=== PATIENT | male | born 1945 | race Caucasian/White ===

== ENCOUNTER 2018-12-09 10:12 | Observation (INO) | payer OTHER ==
[~2018-12-09] VITALS: Ht 182.9 cm; Wt 162.0 kg
[2018-12-09] VITALS (15 sets, daily range): BP systolic 119–146; BP diastolic 66–88
--- NOTE | 2018-12-09 09:21 | H ---
[place] [address] HISTORY AND PHYSICAL Name: BRITTANIE TABARES Room: [facility]#: [id number] Admission: Attend Phys: Tariq Canales MD, Discharge: Date of : 45 Report #: [id number] THIS REPORT FOR: //name// CC: Gabriela Canales DATE OF SERVICE: 12/09/2018 The patient to be admitted on 12/09/2018. The patient will be admitted through Outpatient Surgery for cardiac catheterization on 12/09/2018. HISTORY OF PRESENT ILLNESS: The patient is a very pleasant 73-year-old male with complex coronary artery disease, status post multiple prior percutaneous coronary interventions. There is underlying hypertension, hypercholesterolemia and obesity. He also has asymptomatic bilateral carotid stenosis. He has been compliant with cardiac regimen including benazepril 10 mg daily, clonidine 0.3 mg b.i.d., Plavix 75 mg daily, metoprolol succinate 25 mg daily, rosuvastatin 20 mg daily. ADDITIONAL MEDICATIONS: Include Ranitidine 150 mg b.i.d., tamsulosin 0.4 mg daily. PAST MEDICAL HISTORY: Remarkable for hyperlipidemia, hypertension and a remote TIA. SOCIAL HISTORY: The patient is a nonsmoker. He is . FAMILY HISTORY: Remarkable for no premature coronary events. REVIEW OF SYSTEMS: Following are positive GENERAL: He notes chronic weight excess. MUSCULOSKELETAL: There are chronic arthritic complaints. GASTROINTESTINAL: Has a history of reflux esophagitis. Remainder is unremarkable. PHYSICAL EXAMINATION: GENERAL: Reveals an overweight elderly male in no acute distress. VITAL SIGNS: Blood pressure is 115/78, pulse rate is 75, respirations are 18 per minute. NECK: Jugular venous pressure is normal. Carotids are 1-2+. CHEST: Clear. CARDIOVASCULAR: Reveals normal first and second heart sounds without [place] [address] HISTORY AND PHYSICAL Name: BRITTANIE TABARES Room: [facility]#: [id number] Admission: Attend Phys: Tariq Canales MD, Discharge: Date of : 45 Report #: [id number] ABDOMEN: Moderately obese and nontender. EXTREMITIES: Without edema with intact femoral, pedal and radial pulses. Recent nuclear stress test was remarkable for inducible anterolateral and apical ischemia after pharmacological provocation. IMPRESSION: 1. Abnormal nuclear stress test with inducible anterolateral and apical ischemia. 2. Coronary artery disease. 3. Status post prior coronary interventions, predominantly to the LAD. 4. Hyperlipoproteinemia. 5. Obesity. 6. Asymptomatic carotid stenosis. 7. Hypertension. RECOMMENDATIONS: Given the aforementioned history with known coronary artery disease and abnormal nuclear stress test with a moderately large inducible anterolateral and apical defect, I would recommend cardiac catheterization to define the magnitude of coronary artery disease and prospects for subsequent therapy. This has been discussed with the patient and family. <ELECTRONICALLY SIGNED> By: Tariq Canales MD, FACC 12/09/18 0921 1513 1531John Rush Canales MD, COCO /nt
[~2018-12-09 10:12] MED LIST: ASPIRIN EC81 M1 PO; BENAZEPRIL HCL5 MG PO; CLONIDINE HCL0.3 M3 PO; SIMVASTATIN40 MG PO; TOPROL XL25 MG PO; ZANTAC 150MG T150 M1 PO
[2018-12-09 11:35] LABS: HEMATOCRIT 46.1 % (42.0-52.0); HEMOGLOBIN 15.3 gm/dL (14.0-18.0); MCH 30.7 pg (26.0-34.0); MCHC 33.1 g/dL (28.0-37.0); MCV 92.7 fL (80.0-100.0); MPV 8.9 fl. (7.2-11.1); RBC 4.97 mil/uL (4.50-6.00); RDW-CV 13.7 % (10.5-14.5); WBC 7.3 thou/uL (4.0-11.0)
[2018-12-09 11:46] LABS: PROTIME 10.1 Seconds (9.20-11.50)
[2018-12-09 12:11] LABS: ALBUMIN 3.4 g/dL (3.4-5.0); ALKALINE PHOSPHATASE 68 U/L (46-116); ANION GAP 7 mmol/L (7-16); BUN 17 mg/dL (7-18); CALCIUM 9.1 mg/dL (8.5-10.1); CHLORIDE 104 mmol/L (98-107); CO2 30 mmol/L (21-32); CREATININE 1.1 mg/dL (0.6-1.3); GLUCOSE 96 mg/dL (70-99); POTASSIUM 4.5 mmol/L (3.5-5.1); SGOT 18 U/L (15-37); SGPT 17 U/L (30-65); SODIUM 141 mmol/L (136-145); TOTAL BILIRUBIN 0.2 mg/dL (<0.1-1.0); TOTAL PROTEIN 7.3 g/dL (6.4-8.2)
[2018-12-09 12:14] LABS: SERUM ASSESSMENT Clear
--- NOTE | 2018-12-09 16:52 | EKG ---
[place] [address] ELECTROCARDIOGRAM REPORT Name: BRITTANIE TABARES Room: [address] M.R.#: [id number] Admission: 12/09/18 Attend Phys: Tariq Canales MD, Discharge: Date of : 45 Report #: [id number] THIS REPORT FOR: //name// [facility] Test Date: 2018-12-09 Test Time: 11:18:11 Pat Name: BRITTANIE TABARES Department: Room: 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1945 Requested By: Tariq Canales Order Number: [id number] MD: Tariq Canales Measurements Intervals [place] Rate: 76 P: -2 MD: 157 QRS: -10 QRSD: 94 T: 7 QT: 389 QTc: 438 Interpretive Statements Sinus rhythm Abnormal R-wave progression, early transition Left ventricular hypertrophy Borderline T abnormalities, inferior leads No previous ECG available for comparison Electronically Signed On 12-09-2018 16:52:13 CDT by Tariq Canales [email or web address] <ELECTRONICALLY SIGNED> By: Tariq Canales MD, [facility] 12/09/18 1652 1118 1118 Tariq Canales MD, [facility] /EPI
--- NOTE | 2018-12-09 16:54 | EKG ---
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
[2018-12-09] MEDS ORDERED: FLOMAX0.4 MG PO (18:06)
--- NOTE | 2018-12-09 18:28 | NUR ---
PT ADMITTED AROUND 1750 PT IS ALERT AND ORIENTED X 4 PT DENIES PAIN OR SOA ON RA, PT IS ON BEDREST TILL 1999 PER CARDIOLOGY PT HAD CARDIAC CATH PT RIGHT GROIN SITE IS CLEAN DRY INTACT PT IS SR ON THE MONITOR, PT IS PLEASANT AND COOPERATIVE, PT IS NOT A FALL RISK PT USES URINAL APPROPRIATELY, WILL CONTINUE TO MONITOR
[2018-12-09] MEDS ORDERED: PLAVIX 75 MG TA75 M1 PO (20:46)
[2018-12-09] MEDS ORDERED: ARTHRITIS PAIN650 M3 PO (20:49)
[2018-12-09] MEDS ORDERED: CRESTOR20 MG PO (20:50)
[2018-12-09] MEDS ORDERED: TOPAMAX 25 MG T25 M1 PO (20:51)
[2018-12-10 04:00] VITALS: BP 121/64
[2018-12-10 04:59] LABS: HEMATOCRIT 44.4 % (42.0-52.0); HEMOGLOBIN 14.6 gm/dL (14.0-18.0); MCH 30.7 pg (26.0-34.0); MCV 93.1 fL (80.0-100.0); MPV 8.8 fl. (7.2-11.1); RBC 4.77 mil/uL (4.50-6.00); RDW-CV 13.5 % (10.5-14.5); WBC 9.4 thou/uL (4.0-11.0)
[2018-12-10 05:26] LABS: ALBUMIN 3.2 g/dL (3.4-5.0); POTASSIUM 5.1 mmol/L (3.5-5.1); TOTAL BILIRUBIN 0.3 mg/dL (<0.1-1.0); TROPONIN-I LEVEL 0.25 ng/mL (<0.06)
--- NOTE | 2018-12-10 05:41 | NUR ---
ASSUMED CARE OF PT AFTER REPORT AT 1930. PT A&OX4. VSS. PHYSICAL ASSESSMENT COMPLETED AND CHARTED. PT ON RA WITH 92% O2 SAT. PT TRACING SR ON TELE. POST CATH SITE TO RIGHT GROIN C/D/I. NO BLEEDING, HEMATOMA OR TENDERNESS. PT RESTED WELL ON BED. CALL LIGHT WITHIN REACH.
[2018-12-10 08:20] VITALS: BP 121/64
[2018-12-10 09:45] VITALS: BP 157/62
--- NOTE | 2018-12-10 09:58 | NUR ---
ASSUMED PT CARE AT 0700 PT IS ALERT AND ORIENTED X 4 PT DENIES PAIN OR SOA ON RA, PT IS UP WITH SBA TO CHAIR PT IS NOT A FALL RISK PT IS STEADY PT IS SR ON THE MONITOR, CATH RIGHT GROIN SITE CLEAN DRY INTACT, PT IS CLEARED FOR DISCAHRGE BY CARDIOLOGY
[2018-12-10 10:01] VITALS: BP 157/62
[2018-12-10 10:24] VITALS: BP 157/62
[2018-12-10 14:31] LABS: CHOLESTEROL 119 mg/dL (<200); HDL CHOLESTEROL 37 mg/dL (>40); LDL CHOLESTEROL 59 mg/dL (<100); TC:HDL 3.2 Ratio (Not establshd); TRIGLYCERIDE 115 mg/dL (<150); VLDL 23 mg/dL (<40)
--- NOTE | 2018-12-10 14:55 | D ---
[address] [address] DISCHARGE SUMMARY Name: BRITTANIE TABARES Elvira Room: [address] Sofia Sousa#: [id number] Admission: 12/09/18 Attend Phys: Tariq Canales MD, Discharge: 12/10/18 Date of : 45 Report #: [id number] THIS REPORT FOR: //name// CC: Gabriela Canales DATE OF SERVICE: 12/10/2018 FINAL DISCHARGE DIAGNOSES: 1. Abnormal nuclear stress test. 2. Coronary artery disease. 3. Status post percutaneous coronary intervention of the LAD. 4. Hypertension. 5. Hypercholesterolemia. 6. Exogenous obese. PROCEDURES: On 12/09/2018, left heart catheterization, left ventriculography, selective coronary arteriography and percutaneous coronary intervention to mid LAD. The patient is a very pleasant 73-year-old male with known coronary artery disease, status post multiple prior percutaneous coronary interventions. Recently, he had noted some chest tightness and nuclear stress test demonstrated anteroapical and anterolateral ischemia. In this context, I performed cardiac catheterization on 12/09/2018. That study revealed 80% mid LAD stenosis just distal to the previously deployed stent. I placed one 2.5 x 15 mm Jamal drug-eluting stent deployed to 12 atmospheres and post-dilated with a 2.5 x 8 NC Trek to 16-17 atmospheres with 0% residual narrowing and 40% narrowing at the ostium of the diagonal that emanated from that region. The patient did well post-procedurally and ambulated in the hallways without difficulty with good hemostasis at the right femoral site of catheterization. Laboratory data revealed sodium 141, potassium 5.1, BUN 14 and creatinine 1.0. Hemoglobin 14.6 and white blood cell count is 9400 with 186,000 platelets. He was discharged to home on the following medications: Acetaminophen 1300 mg b.i.d., aspirin 325 mg daily, benazepril or Lotensin 10 mg daily, clonidine 0.3 mg b.i.d., clopidogrel 75 mg daily with a 600 mg pablo-procedural dose, metoprolol succinate 25 mg daily, ranitidine 150 mg b.i.d., rosuvastatin 20 mg at bedtime, tamsulosin 0.4 mg daily and Topamax 25 mg b.i.d. He is scheduled to return to see me in the office on 12/31/2018 at [address] [place] [address] DISCHARGE SUMMARY Name: BRITTANIE TABARES Room: [address] Lars#: [id number] Admission: 12/09/18 Attend Phys: Tariq Canales MD, Discharge: 12/10/18 Date of : 45 Report #: [id number] Thus, the patient is discharged to home in stable condition on the aforementioned medications with followup as iterated above. <ELECTRONICALLY SIGNED> By: Tariq Canales MD, [facility] 12/10/18 1455 0945 1007John Rush Canales MD, [facility] /nt
--- NOTE | 2018-12-10 15:07 | EKG ---
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1945 Requested By: Tariq Canales Order Number: [id number] MD: Tariq Canales Measurements Intervals [place] Rate: 87 P: -10 AR: 152 QRS: -17 QRSD: 91 T: 12 QT: 376 QTc: 453 Interpretive Statements Sinus rhythm Borderline left axis deviation Abnormal R-wave progression, early transition Compared to ECG 12/09/2018 16:16:29 Left ventricular hypertrophy no longer present Electronically Signed On 12-10-2018 15:07:07 CDT by Tariq Canales [email or web address] <ELECTRONICALLY SIGNED> By: Tariq Canales MD, [facility] 12/10/18 1507 0256 0256 Tariq Canales MD, [facility] /EPI
--- NOTE | 2018-12-11 11:12 | CARD ---
[address] [address] CARDIAC CATH REPORT Name: BRITTANIE TABARES Room: [address] Sofia Sousa#: [id number] Admission: 12/09/18 Attend Phys: Tariq Canales MD, Discharge: 12/10/18 Date of : 45 Report #: [id number] THIS REPORT FOR: //name// APPROVED REPORT Study performed: 12/09/2018 13:40:21 Patient Details Patient Status: Out-Patient Room #: The patient is a 73 year-old male Event Personnel Tariq Canales Architecture Faculty Member, Rudolph Lopez ScrShirley brennan Brittany RN Book Jogger, Precious Moreno RTR Monitor Procedures Performed Art Access - R femoral artery* Left Heart Cath w/or w/o Coronaries LHC ESTRELLA Place w/wo Plasty Single LAD Hemostasis w/ Angioseal Indication Positive stress test Risk Factors Obesity, Hypercholesterolemia, Hypertension Previous Procedures/Diagnoses Previous PCI Admission/Lab Medications/Medications given during procedure Angiomax IV 24 ml, Angiomax Drip IV 56 ml per hr, Aspirin PO 162 mg, Plavix PO 600 mg Procedure Narrative The patient was brought electively to the Cardiac Catheterization Laboratory and was prepped and draped in a sterile manner. The right femoral was infiltrated with 2% Lidocaine subcutaneous anesthesia. A Cantrall 6 FR sheath was inserted into the right femoral artery. Coronary angiography was performed using coronary diagnostic catheters. The right coronary system was accessed and visualized with a Diagnostic 6FrJR4 catheter. The left coronary system was accessed and visualized with a Diagnostic 6Fr JL4 catheter. The left ventricle was accessed and visualized with a Diagnostic 6Fr straight pigtail catheter. Left ventricular/Aortic Valve gradient assessed via catheter pullback. [place] [address] CARDIAC CATH REPORT Name: BRITTANIE TABARES [address] [id number] Admission: 12/09/18 Attend Phys: Tariq Canales MD, Discharge: 12/10/18 Date of : 45 Report #: [id number] projection. Pre-demployment femoral angiogram was performed . Closure device was deployed with a Fr Angioseal STS 6Fr. Hemostasis was obtained with manual pressure following sheath removal without any complications. The patient tolerated the procedure well and there were no complications associated with the procedure. There was no hematoma. Intraoperative Conscious Sedation Sedation start time: 1400 Case end Time: 1525 Fentanyl 75 mcg Versed 2 mg Fluoro Time: 29.5 minutes Dose: DAP [id number] cGycm2 94.4 mGy Contrast Type and Amount: Visipaque 450 ml Coronary Angiography The patient's coronary anatomy is right dominant. Diagnostic Cath Left Main 0% narrowing LAD 75% mid LAD stenosis after widely patent proximal LAD stent Circumflex 30% mid vessel narrowing Right Coronary Large dominant vessel with 30% mid and distal narrowings Left Ventriculography The left ventricle is normal in size with normal contractility. The left ventricular ejection fraction is estimated to be 60%. Left ventricular wall motion abnormalities are not present. There is no mitral insufficiency. Hemodynamics The aortic pressure is 119/74 mmHg with a mean of 93 mmHg. The left ventricular pressure is 121/4 mmHg with a mean of mmHg. The left ventricular end diastolic pressure is 17 mmHg. There was no gradient across the aortic valve upon pullback. PCI Technique Lesion Percutaneous coronary intervention was performed on the mid left anterior descending artery segment. The lesion stenosis prior to intervention was 75% with GER 3 flow. A 6F XB LAD 3.5 Guide Catheter was used to engage the ostium. A BMW 190cm Interventional Guidewire was [place] [address] CARDIAC CATH REPORT Name: RAYSHAWNBRITTANIE Felix [address] [id number] Admission: 12/09/18 Attend Phys: Tariq Canales MD, Discharge: 12/10/18 Date of : 45 Report #: [id number] BALLOON DILATION A Balloon catheter NC Trek RX 2.5 X 12 was inserted and inflated up to 14.00atm for 12seconds. STENT DEPLOYMENT A drug-eluting stent Jamal RX Stent 2.5X15mm was inserted and inflated up to 10.00atm for 13seconds. Additional Inflation: 11.00atm for 14seconds. POST STENT DEPLOYMENT BALLOON DILATION A Balloon catheter NC Trek RX 2.5 X 8 was inserted and inflated up to 16.00atm for 21seconds. Additional Inflation: 17.00atm for 6seconds. Additional Inflation: 18.00atm for 7seconds. Final angiography reveals 0 % stenosis with GER 3 flow. BALLOON DILATION A Balloon catheter was inserted and inflated up to 18.00atm for 13seconds. Conclusion #1 significant coronary artery disease characterized by the following: A 75% mid LAD stenosis with local dye density definite difference; there was a widely patent proximal LAD stent B 30% narrowing of the midportion of the nondominant circumflex C dominant right coronary artery 30% mid and distal narrowings #2 normal left ventricular systolic function, estimate ejection fraction being 60% #3 mild elevation of left ventricular end-diastolic pressure at rest #4 successful percutaneous coronary intervention with deployment of drug-eluting stent at site of 75% mid LAD stenosis with 0% residual narrowing and GER-3 flow the distal vessel Recommendations Daily ASA with Plavix for at least one year Cardiac Risk Reduction [place] [address] CARDIAC CATH REPORT Name: ZENON TABARESMark Felix Room: [address] Sofia Sousa#: [id number] Admission: 12/09/18 Attend Phys: Tariq Canales MD, Discharge: 12/10/18 Date of : 45 Report #: [id number] Aspirin (any) Clopidogrel Diagnostic Cath Approved by: Tariq Canales MD Date/Time: 12/11/2018 11:12:04 <ELECTRONICALLY SIGNED> By: Tariq Canales MD, FAC 12/11/18 1112 11 111Tariq Canales MD, FACC /INF
== END 2018-12-10 10:52 | disposition home or self-care (01) ==
LOC: M.CL 10:12 → M.2W 15:41 → M.TBA-CV 15:41 → M.2W 18:23
PROVIDERS: ADMIT Internal Medicine
DX: I25.10 Atherosclerotic heart disease of native coronary artery without angina pectoris (principal); E78.5 Hyperlipidemia, unspecified; E66.09 Other obesity due to excess calories; I10 Essential (primary) hypertension; I65.29 Occlusion and stenosis of unspecified carotid artery; R94.39 Abnormal result of other cardiovascular function study; E78.00 Pure hypercholesterolemia, unspecified; Z98.61 Coronary angioplasty status